=== PATIENT | male | born 1990 | race Caucasian/White ===

== ENCOUNTER → 2024-02-29 09:54 | Outpatient (BNVA) | payer OTHER, SELFPAY | PROVIDERS: Visit Provider Physician Assistant Medical | DX: S39.012D Strain of muscle, fascia and tendon of lower back, subsequent encounter (principal); S76.011D Strain of muscle, fascia and tendon of right hip, subsequent encounter; X50.0XXD Overexertion from strenuous movement or load, subsequent encounter | CPT/HCPCS: 99203 ==

== ENCOUNTER → 2024-03-14 10:41 | Outpatient (BNVA) | payer OTHER, SELFPAY | PROVIDERS: Visit Provider Registered Nurse | DX: S39.012D Strain of muscle, fascia and tendon of lower back, subsequent encounter (principal); S76.011D Strain of muscle, fascia and tendon of right hip, subsequent encounter; X50.0XXD Overexertion from strenuous movement or load, subsequent encounter | CPT/HCPCS: 99202; 99213 ==

== ENCOUNTER → 2024-04-04 08:00 | Outpatient (BNVA) | payer OTHER, SELFPAY | PROVIDERS: Visit Provider Registered Nurse | DX: S39.012D Strain of muscle, fascia and tendon of lower back, subsequent encounter (principal); S76.011D Strain of muscle, fascia and tendon of right hip, subsequent encounter; X50.0XXD Overexertion from strenuous movement or load, subsequent encounter | CPT/HCPCS: 99213 ==